=== PATIENT | female | born 1975 | race African-American/Black ===

== ENCOUNTER 2016-11-10 21:45 | Emergency (ER) | payer SELFPAY ==
[~2016-11-10] VITALS: Ht 160 cm; Wt 74.8 kg
[2016-11-10 22:15] VITALS: BP 138/62
[2016-11-10] MEDS ORDERED: AMOX1TAB61 PO (22:20)
--- NOTE | 2016-11-10 22:21 | PHYS DOC ---
Past Medical History Past Medical History: No Pertinent History Past Surgical History: No Surgical History Alcohol Use: None Drug Use: None Adult General Chief Complaint Chief Complaint: Congestion HPI HPI Patient is a 41 year old female presents to the emergency department with a history of nasal congestion and sinus pressure. Patient denies fever, chills, nausea or vomiting. Patient is stating that she has bilateral ear pressure. Review of Systems Review of Systems Constitutional: Denies fever or chills [] Eyes: Denies change in visual acuity, redness, or eye pain [] HENT: nasal congestion, sinus pressure denies sore throat [] Respiratory: Denies cough or shortness of breath [] Cardiovascular: No additional information not addressed in HPI [] GI: Denies abdominal pain, nausea, vomiting, bloody stools or diarrhea [] : Denies dysuria or hematuria [] Musculoskeletal: Denies back pain or joint pain [] Integument: Denies rash or skin lesions [] Neurologic: Denies headache, focal weakness or sensory changes [] Endocrine: Denies polyuria or polydipsia [] Allergies Allergies Allergies Coded Allergies Type Severity Reaction Last Updated Verified sulfamethoxazole Allergy Unknown 03/08/15 No trimethoprim Allergy Unknown 03/08/15 No Physical Exam Physical Exam Constitutional: Well developed, well nourished, no acute distress, non-toxic appearance. [] HENT: Normocephalic, atraumatic, bilateral external ears normal, oropharynx moist, no oral exudates, nose normal. Bilateral TM normal with frontal and maxillary sinus pressure noted. throat without erythema, redness or exudate. Eyes: PERRLA, EOMI, conjunctiva normal, no discharge. [] Neck: Normal range of motion, no tenderness, supple, no stridor. [] Cardiovascular:Heart rate regular rhythm, no murmur [] Lungs & Thorax: Bilateral breath sounds clear to auscultation [] Skin: Warm, dry, no erythema, no rash. [] Back: No tenderness Extremities: No tenderness, no cyanosis, no clubbing, ROM intact, no edema. [] Neurologic: Alert and oriented X 3, normal motor function, normal sensory function, no focal deficits noted. [] Psychologic: Affect normal, judgement normal, mood normal. [] EKG EKG [] Radiology/Procedures Radiology/Procedures [] Course & Med Decision Making Course & Med Decision Making Pertinent Labs and Imaging studies reviewed. (See chart for details) Patient will be provided with augmentin. Recommended Sudafed and mucinex DM. Recommended plenty of fluids. Patient will be discharged home in stable condition. Signs and symptoms to return to the emergency department provided. Patient agrees with discharge instructions, treatment regimen and followup recommendations. [] Dragon Disclaimer Dragon Disclaimer This electronic medical record was generated, in whole or in part, using a voice recognition dictation system. Departure Departure Impression: Primary Impression: Sinusitis Disposition: HOME, SELF-CARE Condition: STABLE Referrals: NO PCP (PCP) Patient Instructions: Sinusitis, [id number] Additional Instructions: Activity as tolerated Medication as prescribed Sudafed as prescribed by manufacture Muniex Dm as prescribed by manufacture Drink plenty of fluids Followup with primary care provider in 5-7 days Return to emergency department as needed for signs and symptoms that become worse. Scripts Amoxicillin/Potassium Clav (AUGMENTIN 875-125 TABLET) 1 Each Tablet 1 TAB PO BID, #20 TAB Prov: THAO ULRICH APRN 11/10/16 THAO ULRICH APRN November 10, 2016 22:20
== END 2016-11-10 22:26 | disposition home or self-care (01) ==
LOC: ER 21:52
DX: J32.9 Chronic sinusitis, unspecified (principal); Z88.2 Allergy status to sulfonamides; Z88.8 Allergy status to other drugs, medicaments and biological substances
CPT/HCPCS: 99283

== ENCOUNTER 2017-07-19 07:34 | Emergency (ER) | payer SELFPAY | END 2017-07-19 08:09 | disposition home or self-care (01) | LOC: ER 07:34 | DX: J32.9 Chronic sinusitis, unspecified (principal); Z88.2 Allergy status to sulfonamides; Z88.1 Allergy status to other antibiotic agents | CPT/HCPCS: 99283 ==

== ENCOUNTER 2017-08-16 00:56 | Emergency (ER) | payer SELFPAY ==
[2017-08-16] MEDS: ACETAMINOPHEN 500 MG TABLET PO ×3 (01:20)
[2017-08-16] MEDS: diphenhydrAMINE 50 MG/ML VIAL IVP ×3 (01:30)
[2017-08-16] MEDS: PROCHLORPERAZINE 10 MG/2 ML VIAL. IV ×3 (01:30)
[2017-08-16 01:31] LABS: URINE HCG POC HCG NEGATIVE (Negative)
== END 2017-08-16 02:12 | disposition home or self-care (01) ==
LOC: ER 00:56
DX: R51 Headache (principal); Z88.2 Allergy status to sulfonamides; Z88.1 Allergy status to other antibiotic agents
CPT/HCPCS: 81025; 96374; 96375; 99284-25; J0780; J1200

== ENCOUNTER 2018-02-23 21:07 | Emergency (ER) | payer OTHER ==
[~2018-02-23] VITALS: Ht 160 cm; Wt 104.3 kg
[~2018-02-23 21:07] MED LIST: AMOX1TAB61 PO; FLUT9.9S NS; IBUP-1007 PO; PSEU30TA27 PO
[2018-02-23 21:40] VITALS: BP 148/83
[2018-02-23] MEDS ORDERED: FLUO20DR5 OT (21:58)
--- NOTE | 2018-02-23 22:00 | PHYS DOC ---
Past Medical History Past Medical History: Hypertension, Other Additional Past Medical Histor: headaches Past Surgical History: , Tubal ligation Alcohol Use: Occasionally Drug Use: None Adult General Chief Complaint Chief Complaint: EARACHE/EAR PAIN HPI HPI Patient is a 43 year old [f__sex] who presents with [] Review of Systems Review of Systems Constitutional: Denies fever or chills [] Eyes: Denies change in visual acuity, redness, or eye pain [] HENT: Denies nasal congestion or sore throat [] Respiratory: Denies cough or shortness of breath [] Cardiovascular: No additional information not addressed in HPI [] GI: Denies abdominal pain, nausea, vomiting, bloody stools or diarrhea [] : Denies dysuria or hematuria [] Musculoskeletal: Denies back pain or joint pain [] Integument: Denies rash or skin lesions [] Neurologic: Denies headache, focal weakness or sensory changes [] Endocrine: Denies polyuria or polydipsia [] All other systems were reviewed and found to be within normal limits, except as documented in this note. Allergies Allergies Allergies Coded Allergies Type Severity Reaction Last Updated Verified sulfamethoxazole Allergy Intermediate 08/16/17 No trimethoprim Allergy Intermediate 08/16/17 No Physical Exam Physical Exam Constitutional: Well developed, well nourished, no acute distress, non-toxic appearance. [] HENT: Normocephalic, atraumatic, bilateral external ears normal, oropharynx moist, no oral exudates, nose normal. [] Eyes: PERRLA, EOMI, conjunctiva normal, no discharge. [] Neck: Normal range of motion, no tenderness, supple, no stridor. [] Cardiovascular:Heart rate regular rhythm, no murmur [] Lungs & Thorax: Bilateral breath sounds clear to auscultation [] Abdomen: Bowel sounds normal, soft, no tenderness, no masses, no pulsatile masses. [] Skin: Warm, dry, no erythema, no rash. [] Back: No tenderness, no CVA tenderness. [] Extremities: No tenderness, no cyanosis, no clubbing, ROM intact, no edema. [] Neurologic: Alert and oriented X 3, normal motor function, normal sensory function, no focal deficits noted. [] Psychologic: Affect normal, judgement normal, mood normal. [] Current Patient Data Vital Signs Vital Signs Date Time Temp Pulse Resp B/P (MAP) Pulse Ox O2 Delivery O2 Flow Rate FiO2 02/23/18 21:40 99.2 68 16 98 Room Air 99.2 EKG EKG [] Radiology/Procedures Radiology/Procedures [] Course & Med Decision Making Course & Med Decision Making Pertinent Labs and Imaging studies reviewed. (See chart for details) [] Dragon Disclaimer Dragon Disclaimer This electronic medical record was generated, in whole or in part, using a voice recognition dictation system. Departure Departure Impression: Primary Impression: Eczema of both external ears Disposition: HOME, SELF-CARE Condition: STABLE Referrals: NO PCP (PCP) Patient Instructions: Eczema Additional Instructions: Use the drops as directed to treat your your condition. Follow-up with your primary care provider for recheck in one week if not improving or return to the emergency department if worsening. Scripts Fluocinolone Acetonide Oil (DERMOTIC) 20 Ml Drops 20 ML OT BID for 14 Days, #5 DROP Prov: ROYAL MITTAL APRN 02/23/18 ROYAL MITTAL APRN Feb 23, 2018 22:00
== END 2018-02-23 22:16 | disposition home or self-care (01) ==
LOC: ER 21:07
DX: H60.543 Acute eczematoid otitis externa, bilateral (principal); I10 Essential (primary) hypertension; Z98.890 Other specified postprocedural states; Z98.51 Tubal ligation status; Z88.2 Allergy status to sulfonamides; Z88.1 Allergy status to other antibiotic agents
CPT/HCPCS: 99282